=== PATIENT | female | born 1985 | race Caucasian/White ===

== ENCOUNTER 2020-09-30 09:32 | Outpatient (CLI) | payer OTHER, SELFPAY ==
[2020-09-30 09:58] LABS: Anion Gap 8 mmol/L (8-16); Blood Urea Nitrogen 13 mg/dL (7-17); Calcium 9.4 mg/dL (8.4-10.2); Carbon Dioxide 28 mmol/L (22-30); Chloride 104 mmol/L (98-107); Cholesterol 159 mg/dL (0-200); Estimated Glomerular Filt Rate > 60; Glucose 86 mg/dL (65-105); HDL Direct 60 mg/dL; Hemoglobin 13.6 g/dL (12.0-15.0); Mean Corpuscular HGB Conc 32.4 g/dl (32-36); Mean Corpuscular Hemoglobin 29.7 pg (26-34); Mean Corpuscular Volume 91.7 fl (80-100); Mean Platelet Volume 10.5 fl (7.4-10.4); Platelet Count Result 217 k/mm3 (150-375); Red Blood Count 4.58 M/mm3 (4.2-5.4); Red Cell Distribution Width 12.5 % (11.5-14.5); Sodium 140 mmol/L (137-145); Triglycerides 40 mg/dL (<150); White Blood Count 5.3 K/mm3 (4.5-10.0)
[2020-09-30 10:09] LABS: LDL Cholesterol Direct 72 mg/dL
== END 2020-09-30 09:33 | disposition home or self-care (01) ==
PROVIDERS: PCP Family Medicine; Visit Provider Nurse Practitioner Family
DX: Z13.220 Encounter for screening for lipoid disorders (principal); Z13.1 Encounter for screening for diabetes mellitus; Z80.0 Family history of malignant neoplasm of digestive organs; Z13.29 Encounter for screening for other suspected endocrine disorder
CPT/HCPCS: 36415; 80048; 80061; 84443; 85027

== ENCOUNTER → 2020-10-03 09:45 | Outpatient (CLI) | payer OTHER, SELFPAY ==
--- NOTE | ~2020-10-03 | US_ITS ---
EXAMINATION: US venous doppler [facility] DATE: 10/03/2020 10:39 INDICATION: Left lower limb pain, swelling and a couple palpable lumps TECHNIQUE: Grayscale ultrasound images without and with compression and Doppler ultrasound images of the bilateral lower extremity veins were obtained. COMPARISON: None. FINDINGS: The visualized portions of right common femoral vein, profunda (deep) femoral vein, femoral vein, pop liteal vein, peroneal trunk, posterior tibial veins, peroneal veins, gastrocnemius vein, soleal vein and greater saphenous vein outflow are patent. The visualized portions of left common femoral vein, profunda femoral vein, femoral vein, popliteal v ein, peroneal trunk posterior tibial veins, peroneal veins, gastrocnemius vein, soleal vein and great er saphenous vein outflow are patent. At the first palpable abnormality of concern is a collection of 3 separate small anechoic cysts witho ut evident vascular flow on color Doppler located within a 2.5 cm region, the largest cyst measuring 3.5 mm in maximal diameter. There is a 9 x 7 x 4 mm ovoid subcutaneous mass which is slightly hyperec hoic to the surrounding fat most likely either a lipoma or focus of inflammation of otherwise normal fat. IMPRESSION: 1. No deep venous thrombosis in either lower limb. 2. Collection of 3 separate simple appearing cysts, the largest measuring up to 3.5 mm 3. 9 x 7 x 4 mm slightly hyperechoic nodule in the subcutaneous fat at the second region of concern m ost likely a lipoma or focus of inflammation within the otherwise normal fat. Reviewed, dictated and finalized at location A. IMPRESSION: 1. No deep venous thrombosis in either lower limb. 2. Collection of 3 separate simple appearing cysts, the largest measuring up to 3.5 mm 3. 9 x 7 x 4 mm slightly hyperechoic nodule in the subcutaneous fat at the seco nd region of concern most likely a lipoma or focus of inflammation within the o therwise normal fat.
== END ==
PROVIDERS: PCP Family Medicine; Visit Provider Nurse Practitioner Family
DX: M79.605 Pain in left leg (principal)
CPT/HCPCS: 93970

== ENCOUNTER → 2020-12-12 09:06 | Outpatient (CLI) | payer OTHER, SELFPAY ==
[2020-12-12 18:14] LABS: SARS-CoV-2 RNA PCR Negative
== END ==
PROVIDERS: PCP Family Medicine; Visit Provider Family Medicine
DX: Z20.822 Contact with and (suspected) exposure to COVID-19 (principal)
CPT/HCPCS: C9803; U0003; U0005

== ENCOUNTER → 2021-04-09 08:46 | Outpatient (CLI) | payer OTHER, SELFPAY ==
[2021-04-09 20:33] LABS: SARS-CoV-2 RNA PCR Negative
== END ==
PROVIDERS: PCP Family Medicine; Visit Provider Nurse Practitioner Family
DX: R68.89 Other general symptoms and signs (principal); Z20.822 Contact with and (suspected) exposure to COVID-19
CPT/HCPCS: C9803; U0003; U0005